=== PATIENT | female | born 1995 ===

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

== ENCOUNTER 2018-10-01 22:23 | Inpatient (IN) ==
[2018-10-01] MEDS ORDERED: SODIUM CHLORIDE 0.9% 1000ML 1,000 ML IV ONE (23:05)
[2018-10-01] MEDS ORDERED: ACETAMINOPHEN 1,000 MG/100 ML VIAL IV STA (23:05)
[2018-10-01] MEDS ORDERED: ONDANSETRON INJ 2 MG/ML 2 ML VIAL IV STA (23:05)
[2018-10-01 23:27] LABS: Basophils # (auto) 0.02 K/uL (0-0.2); Basophils % (auto) 0.2 %; Eosinophils # (auto) 0.03 K/uL (0-0.5); Eosinophils % (auto) 0.3 %; Hematocrit (blood only) 34.2 % (37-47); Immature Granulocytes # (auto) 0.03 K/uL (0.00-0.02); Immature Granulocytes % (auto) 0.3 %; Lymphocytes # (auto) 1.82 K/uL (1.2-3.4); Lymphocytes % (auto) 16.4 %; Mean Corpuscular Hgb Conc 32.2 g/dL (32-36); Mean Corpuscular Volume 78.3 fL (80-100); Monocytes # (auto) 1.75 K/uL (0.11-0.59); Monocytes % (auto) 15.8 %; Neutrophils # (auto) 7.45 K/uL (1.4-6.5); Platelet Count 211 K/uL (130-400); RDW Coefficient of Variation 14.1 % (11.5-14.5); RDW Standard Deviation 40.4 fL (36.4-46.3); Red Blood Count 4.37 M/uL (4.2-5.4)
[2018-10-01 23:35] LABS: Appearance Urine Turbid (Clear); Bacteria Urine Automated 3+ (Negative); Bilirubin Urine Negative (Negative); Blood Urine 2+ (Negative); Color Urine Yellow; Epithelial Cell Urine Auto >30 /lpf (0-5); Glucose Urine UA Negative (Negative); Ketones Urine Negative (Negative); Leukocyte Esterase Urine Trace (Negative); Nitrite Urine Negative (Negative); Protein Urine Negative (Negative); RBC Urine Automated 0-4 /hpf (0-4); Specific Gravity Urine 1.024 (1.000-1.030); Urobilinogen Urine Negative (Negative); pH Urine >= 9.0 (4.5-7.5)
[2018-10-01 23:46] LABS: Albumin Level 3.2 gm/dl (3.4-5.0); BUN Creatinine Ratio 12.5 (10-20); Calcium 8.4 mg/dl (8.5-10.1); Creatinine Clr Calc Pharmacy 79.7 ml/min; Est GFR (African American) 108.1; Est GFR (Non-African American) 93.3; Potassium 3.9 mmol/L (3.5-5.1)
[2018-10-01 23:49] LABS: Albumin Globulin Ratio 0.9 (0.9-2); Bilirubin,Total 0.2 mg/dl (0.2-1); Globulin 3.5 gm/dl (2.5-4.0); Total Protein 6.7 gm/dl (6.4-8.2)
[2018-10-01 23:51] LABS: Cast Urine Automated 0 /lpf (0-5); Mucus Urine Present (None Prsent)
[2018-10-02] MEDS ORDERED: IOVERSOL 100ml IV PRN (00:08)
[2018-10-02] MEDS ORDERED: cefTRIAXone SODIUM 1,000 MG/50 ML BAG IV STA (01:25)
--- NOTE | 2018-10-02 01:36 | Emergency Department Note ---
History of Present Illness General Chief Complaint: Fever Stated Complaint: HEADACHE,FEVER,NAUSEA Source: patient Mode of arrival: ambulatory Limitations: no limitations History of Present Illness Provider Complaint: abdominal pain Onset (ago): 2 day(s) Pain Consistency: constant Location: diffuse and epigastric Migration to: no migration Severity: severe Maximum Pain Intensity: 8 Current Pain Intensity: 8 Quality: + sharp Relieved By: + nothing Exacerbated By: + eating Associated Symptoms: + nausea, + fever and + chills; no vomiting and no diarrhea Treatments prior to arrival: none This 22-year-old female patient presents emergency department today complaining of nausea, lightheadedness, fever, congestion, generalized abdominal pain. Patient denies any rhinorrhea or sore throat. She states the pain is in the mid abdomen and describes it as sharp and constant. She states it began yesterday. The patient has taken no medications for symptoms. She has been able to tolerate water, but has had a significantly decreased appetite. Eating makes his symptoms worse, and there are no alleviating factors. The patient reports constipation, but states her last bowel movement was 4 PM today. She reports a sensation to move her bowels. She denies any recent diarrhea. She denies any history of abdominal surgeries. She does admit to taking 2 plan B pills this week, the first 1 on Tuesday and 1 of them yesterday. The patient rates her pain 8/10 and describes it as sharp. She denies any palpitations, chest pain, difficulty breathing, dizziness, altered mental status, neck pain, flank pain, or dysuria. Related Data Date of Last Menstrual Period: 09/04/18 Home Medications Home Medications Medication Instructions Recorded Confirmed Type No Known Home Medications 10/01/18 10/01/18 History Allergies Allergy/AdvReac Type Severity Reaction Status Date / Time Penicillins Allergy Unknown UNKNOWN Verified 10/01/18 22:41 Past Med/Surg History Medical History No pertinent past medical history Social History Feels Safe at Home: Yes Smoking Status: Never smoker Review of Systems A total of 10 systems reviewed and were otherwise negative Physical Exam Vital Signs: Vital Signs - 24 hr 10/01/18 22:27 10/02/18 00:10 10/02/18 00:56 Temperature 38.6 C H 37.1 C Temperature Source Oral Oral Sepsis Recent Feve r Within 48 Hours Yes Sepsis Action Take n by Nursing No Action Required Pulse Rate 113 H Pulse Rate [Apical ] 95 H 87 Respiratory Rate 18 18 18 Respiratory Effort / Characteristics Non-Labored Sponta neous Respiratory Depth Normal Normal Respiratory Patter n Regular Blood Pressure 122/85 Blood Pressure [Le ft Arm] 126/80 96/61 L Blood Pressure Tiff n 97 Blood Pressure Tiff n [Left Arm] 95 72 Blood Pressure Pos ition Sitting Pulse Oximetry 99 100 99 Oxygen Delivery Me thod Room Air Room Air Room Air Physical Exam: VITALS: Vitals are noted on the nurse's note and reviewed by myself. Vital signs stable. GENERAL: This is a 22-year-old female, in no acute distress, nondiaphoretic, well-developed well-nourished. SKIN: The skin was without rashes, erythema, edema, or bruising. There is no tenting of the skin. Capillary reflex less than 2 seconds. HEAD: Normocephalic atraumatic. EARS: External auditory canals clear, tympanic membranes pearly alegria without erythema or effusion bilaterally. EYES: Pupils equal round and reactive to light and accommodation. Conjunctivae without injection, sclerae without icterus. Extraocular movements intact. NOSE: Patent, turbinates without inflammation or discharge. No sinus tenderness. MOUTH: Mucous membranes moist. Tonsils are not enlarged. Pharynx without erythema or exudate. Uvula midline. Airway patent. Tongue does not deviate. NECK: Supple without nuchal rigidity. No lymphadenopathy. No thyromegaly. Cervical spine is nontender. No JVD. HEART: Regular rate and rhythm without murmurs gallops or rubs. LUNGS: Clear to auscultation bilaterally without wheezes, rales or rhonchi. No dullness to percussion. No retractions or accessory muscle use. ABDOMEN: Positive bowel sounds x 4. Normal tympanic percussion. Generalized abdominal tenderness. The abdomen was mildly distended. No masses or organomegaly. Lundberg sign negative. No guarding or rebound tenderness. MUSCULOSKELETAL: No muscle atrophy, erythema, or edema noted. Full range of motion without joint tenderness in all extremities. No tenderness to palpation. Normal gait. Strength 5/5 throughout. NEURO: Patient was alert and oriented to person place and time. Normal sensation to light and sharp touch. Deep tendon reflexes 2+ throughout. No focal neurological deficits. Course The patient was seen and evaluated as above. IV access obtained, labs drawn. The patient was medicated with IV fluids, Zofran, and acetaminophen. Imaging performed and reviewed by myself and radiologist as above. Labs reviewed by myself. I discussed the case with my attending. I discussed the findings with the patient at bedside. I discussed the case with her mother on the phone. I did recommend admission at this time. I consulted with Dr. Delgado, [facility] hospitalist. She did agreed to assess the patient for admission. Please see her dictation regarding ongoing management care of this patient. The patient was given IV Rocephin due to questionable UTI and fever. Administered Medications Ioversol (Optiray 320 100ml) 100 ml IV ONCE PRN PRN Reason: Interaction Checking Stop: 10/06/18 00:07 Last Admin: 10/02/18 00:09 Dose: 93 ml Documented by: [id number] Discontinued Medications Acetaminophen (Ofirmev) 1,000 mg in 100 mls @ 400 mls/hr IV NOW STA Stop: 10/01/18 23:19 Last Infusion: 10/01/18 23:53 Dose: 0 mls/hr Documented by: [id number] Admin: 10/01/18 23:38 Dose: 400 mls/hr Documented by: [id number] Sodium Chloride (Nss 1000ml) 1,000 mls @ 999 mls/hr IV .Q1H1M ONE Stop: 10/02/18 00:05 Last Infusion: 10/02/18 00:56 Dose: 0 mls/hr Documented by: [id number] Admin: 10/01/18 23:39 Dose: 999 mls/hr Documented by: [id number] Ceftriaxone Sodium (Rocephin) 1,000 mg in 50 mls @ 100 mls/hr IV NOW STA Stop: 10/02/18 01:54 Last Infusion: 10/02/18 02:02 Dose: 0 mls/hr Documented by: [id number] Admin: 10/02/18 01:30 Dose: 100 mls/hr Documented by: [id number] Ondansetron HCl (Zofran) 4 mg IV NOW STA Stop: 10/01/18 23:06 Last Admin: 10/01/18 23:38 Dose: 4 mg Documented by: [id number] Medical Decision Making Differential Diagnosis + peptic ulcer disease, + biliary pathology, + UTI, + obstruction, + mesenteric ischemia, + aortic pathology, + infections, + inflammatory bowel disease, + renal colic, + ectopic (female), + ovarian torsion (female), + tubo- ovarian abscesses (female), + pelvic inflammatory disease (female), + abdominal pain, + appendicitis, + calculus of kidney, + constipation, + diverticulitis, + endometriosis, + gastroenteritis, + pancreatitis and + small bowel obstruction Home Medications Current Medication List: was personally reviewed by or Laboratory Data Attestation: I reviewed the patient's lab results. Mild leukocytosis of 11,000. Mild anemia with hemoglobin 11. No significant renal, hepatic, electrolyte abnormalities. Lipase mildly elevated at 518. Monoscreen negative. Lactic 1.5. Urine test negative. Urinalysis positive for 3+ bacteria and 2+ blood. This does appear to be contaminated with epithelial cells. Negative influenza testing. Result diagrams: 10/01/18 23:14 10/01/18 23:14 Lab Results 10/01/18 10/01/18 10/01/18 Range/Units 23:14 23:14 23:14 WBC 11.10 H (4.8-10.8) K/uL RBC 4.37 (4.2-5.4) M/uL Hgb 11.0 L (12.0-16.0) g/dL Hct 34.2 L (37-47) % MCV 78.3 L (80-100) fL MCH 25.2 (25-34) pg MCHC 32.2 (32-36) g/dL RDW Std Deviation 40.4 (36.4-46.3) fL RDW Coeff of Diego 14.1 (11.5-14.5) % Plt Count 211 (130-400) K/uL MPV 9.0 (7.4-10.4) fL Immature Gran % (Auto) 0.3 % Neut % (Auto) 67.0 % Lymph % (Auto) 16.4 % [place] % (Auto) 15.8 % Eos % (Auto) 0.3 % Baso % (Auto) 0.2 % Immature Gran # (Auto) 0.03 H (0.00-0.02) K/uL Neut # (Auto) 7.45 H (1.4-6.5) K/uL Lymph # (Auto) 1.82 (1.2-3.4) K/uL [place] # (Auto) 1.75 H (0.11-0.59) K/uL Eos # (Auto) 0.03 (0-0.5) K/uL Baso # (Auto) 0.02 (0-0.2) K/uL Sodium 141 (136-145) mmol/L Potassium 3.9 (3.5-5.1) mmol/L Chloride 111 H (98-107) mmol/L Carbon Dioxide 25 (21-32) mmol/L Anion Gap 5.0 (3-11) BUN 11 (7-18) mg/dl Creatinine 0.89 (0.6-1.2) mg/dl Est Cr Clr Drug Dosing 79.7 ml/min Est GFR ( Amer) 108.1 Est GFR (Non-Af Amer) 93.3 BUN/Creatinine Ratio 12.5 (10-20) Glucose 95 (70-99) mg/dl Lactate (0.4-2.0) mmol/L Calcium 8.4 L (8.5-10.1) mg/dl Total Bilirubin 0.2 (0.2-1) mg/dl AST 16 (15-37) U/L ALT 16 (12-78) U/L Alkaline Phosphatase 55 (45-117) U/L Total Protein 6.7 (6.4-8.2) gm/dl Albumin 3.2 L (3.4-5.0) gm/dl Globulin 3.5 (2.5-4.0) gm/dl Albumin/Globulin Ratio 0.9 (0.9-2) Lipase 518 H (73-393) U/L Urine Color Urine Appearance (Clear) Urine pH (4.5-7.5) Ur Specific [place] (1.000-1.030) Urine Protein (Negative) Urine Glucose (UA) (Negative) Urine Ketones (Negative) Urine Blood (Negative) Urine Nitrite (Negative) Urine Bilirubin (Negative) Urine Urobilinogen (Negative) Ur Leukocyte Esterase (Negative) Urine WBC (Auto) (0-5) /hpf Urine RBC (Auto) (0-4) /hpf U Hyaline Cast (Auto) (0-5) /lpf U Epithel Cells (Auto) (0-5) /lpf Urine Bacteria (Auto) (Negative) Urine Mucus (None Prsent) Urine Yeast POC Ur Test (NEG) Monoscreen Negative (Negative) Influenza Type A Ag (Neg) Influenza Type B Ag (Neg) 10/01/18 10/01/18 10/01/18 Range/Units 23:20 23:20 23:25 WBC (4.8-10.8) K/uL RBC (4.2-5.4) M/uL Hgb (12.0-16.0) g/dL Hct (37-47) % MCV (80-100) fL MCH (25-34) pg MCHC (32-36) g/dL RDW Std Deviation (36.4-46.3) fL RDW Coeff of Diego (11.5-14.5) % Plt Count (130-400) K/uL MPV (7.4-10.4) fL Immature Gran % (Auto) % Neut % (Auto) % Lymph % (Auto) % [place] % (Auto) % Eos % (Auto) % Baso % (Auto) % Immature Gran # (Auto) (0.00-0.02) K/uL Neut # (Auto) (1.4-6.5) K/uL Lymph # (Auto) (1.2-3.4) K/uL [place] # (Auto) (0.11-0.59) K/uL Eos # (Auto) (0-0.5) K/uL Baso # (Auto) (0-0.2) K/uL Sodium (136-145) mmol/L Potassium (3.5-5.1) mmol/L Chloride (98-107) mmol/L Carbon Dioxide (21-32) mmol/L Anion Gap (3-11) BUN (7-18) mg/dl Creatinine (0.6-1.2) mg/dl Est Cr Clr Drug Dosing ml/min Est GFR ( Amer) Est GFR (Non-Af Amer) BUN/Creatinine Ratio (10-20) Glucose (70-99) mg/dl Lactate 1.5 (0.4-2.0) mmol/L Calcium (8.5-10.1) mg/dl Total Bilirubin (0.2-1) mg/dl AST (15-37) U/L ALT (12-78) U/L Alkaline Phosphatase (45-117) U/L Total Protein (6.4-8.2) gm/dl Albumin (3.4-5.0) gm/dl Globulin (2.5-4.0) gm/dl Albumin/Globulin Ratio (0.9-2) Lipase (73-393) U/L Urine Color Yellow Urine Appearance Turbid H (Clear) Urine pH >= 9.0 H (4.5-7.5) Ur Specific [place] 1.024 (1.000-1.030) Urine Protein Negative (Negative) Urine Glucose (UA) Negative (Negative) Urine Ketones Negative (Negative) Urine Blood 2+ H (Negative) Urine Nitrite Negative (Negative) Urine Bilirubin Negative (Negative) Urine Urobilinogen Negative (Negative) Ur Leukocyte Esterase Trace H (Negative) Urine WBC (Auto) 10-30 H (0-5) /hpf Urine RBC (Auto) 0-4 (0-4) /hpf U Hyaline Cast (Auto) 0 (0-5) /lpf U Epithel Cells (Auto) >30 H (0-5) /lpf Urine Bacteria (Auto) 3+ H (Negative) Urine Mucus Present H (None Prsent) Urine Yeast Not Reportable POC Ur Test NEG (NEG) Monoscreen (Negative) Influenza Type A Ag (Neg) Influenza Type B Ag (Neg) 10/01/18 Range/Units 23:43 WBC (4.8-10.8) K/uL RBC (4.2-5.4) M/uL Hgb (12.0-16.0) g/dL Hct (37-47) % MCV (80-100) fL MCH (25-34) pg MCHC (32-36) g/dL RDW Std Deviation (36.4-46.3) fL RDW Coeff of Diego (11.5-14.5) % Plt Count (130-400) K/uL MPV (7.4-10.4) fL Immature Gran % (Auto) % Neut % (Auto) % Lymph % (Auto) % [place] % (Auto) % Eos % (Auto) % Baso % (Auto) % Immature Gran # (Auto) (0.00-0.02) K/uL Neut # (Auto) (1.4-6.5) K/uL Lymph # (Auto) (1.2-3.4) K/uL [place] # (Auto) (0.11-0.59) K/uL Eos # (Auto) (0-0.5) K/uL Baso # (Auto) (0-0.2) K/uL Sodium (136-145) mmol/L Potassium (3.5-5.1) mmol/L Chloride (98-107) mmol/L Carbon Dioxide (21-32) mmol/L Anion Gap (3-11) BUN (7-18) mg/dl Creatinine (0.6-1.2) mg/dl Est Cr Clr Drug Dosing ml/min Est GFR ( Amer) Est GFR (Non-Af Amer) BUN/Creatinine Ratio (10-20) Glucose (70-99) mg/dl Lactate (0.4-2.0) mmol/L Calcium (8.5-10.1) mg/dl Total Bilirubin (0.2-1) mg/dl AST (15-37) U/L ALT (12-78) U/L Alkaline Phosphatase (45-117) U/L Total Protein (6.4-8.2) gm/dl Albumin (3.4-5.0) gm/dl Globulin (2.5-4.0) gm/dl Albumin/Globulin Ratio (0.9-2) Lipase (73-393) U/L Urine Color Urine Appearance (Clear) Urine pH (4.5-7.5) Ur Specific [place] (1.000-1.030) Urine Protein (Negative) Urine Glucose (UA) (Negative) Urine Ketones (Negative) Urine Blood (Negative) Urine Nitrite (Negative) Urine Bilirubin (Negative) Urine Urobilinogen (Negative) Ur Leukocyte Esterase (Negative) Urine WBC (Auto) (0-5) /hpf Urine RBC (Auto) (0-4) /hpf U Hyaline Cast (Auto) (0-5) /lpf U Epithel Cells (Auto) (0-5) /lpf Urine Bacteria (Auto) (Negative) Urine Mucus (None Prsent) Urine Yeast POC Ur Test (NEG) Monoscreen (Negative) Influenza Type A Ag Neg for Influ A (Neg) Influenza Type B Ag Neg for Influ B (Neg) Imaging Data Radiologist's Impression: Chest x-ray. reviewed by myself. Findings: A chest x-ray was performed and revealed no pneumothorax, effusion, infiltrate, pulmonary edema, free air under the diaphragm, or wide mediastinum. CT ABDOMEN & PELVIS With Contrast: No prior No evidence for pneumonia at the lung bases. Fluid in the esophagus which may represent reflux. Gastric distention. While nonspecific, prominent with mottled intraluminal appearance. Correlate for gastric outlet obstruction. Gastric bezoar within the differential. Consider NG tube placement or other follow-up, as indicated. Limited by paucity of mesenteric fat and volume averaging. Where visualized, appendix appears unremarkable. Small amount of free fluid in the pelvis. Gallbladder is contracted and not well evaluated. No evidence for acute pancreatitis or other significant abnormality of the solid viscera. Radiologist: Chevy Redd M.D. Blood Pressure Blood Pressure Findings: Normal blood pressure MDM Narrative This 22-year-old female patient presents emergency department today complaining of fever and generalized abdominal discomfort. The patient's symptoms began 2 days ago and associated with nausea, but no vomiting. Workup here in the ED does show very mild leukocytosis. The patient does have bacteria in her urine. CT scan was concerning for gastric distention, possibly a gastric outlet obst ruction. Because of this finding, I did recommend admission with GI consult tomorrow. The hospitalist was agreeable. I did speak with the patient as well as her mother, and they verbalized agreement understanding of this plan. The patient was initially hesitant for admission, and when asked why, she states "because I will feel more comfortable in my own bed. Discussed the risks associated with her going home and not having the GI consult and further workup and the patient verbalized understanding and agrees to admission. Please see hospitalist dictation regarding ongoing management care of this patient. The chart was completed utilizing [employer] Speech voice recognition software. Grammatical errors, random word insertions, pronoun errors, and incomplete sentences are an occasional consequence of this system due to software limitations, ambient noise, and hardware issues. Any formal questions or concerns about the content, text, or information contained within the body of this dictation should be directly addressed to the provider for clarification. Impression & Plan Fever, Gastric outlet obstruction Discharge Plan Visit Data Chief Complaint: Fever Stated Complaint: HEADACHE,FEVER,NAUSEA ED Provider: Bryn Phan ED Midlevel Provider: Debbie Voss Discharge Problem: Fever, Gastric outlet obstruction Forms Stand Alone Forms: [employer] [employer] Prescriptions Prescriptions: No Action No Known Home Medications RF: 0 Referrals Referrals: [facility] [Primary Care Provider] - Discharge Problem: Fever Qualifiers: Fever type: unspecified Qualified Code(s): R50.9 - Fever, unspecified
--- NOTE | 2018-10-02 02:37 | History & Physical Report ---
Date of Service October 02, 2018 Assessment & Plan (1) Abdominal pain: 22-year-old female with no significant past medical history presenting with abdominal pain and abnormal CT findingssigns of gastric outlet obstruction. Abdominal pain/nausea/fever Physical exam is not suspicious for bowel obstruction. Pt has mildly elevated lipase Differential includes; viral gastroenteritis, pancreatitis, peptic ulcer disease, bezor Patient will be n.p.o., continue fluids normal saline 125 cc/h, Pepcid, Tylenol for pain control Ordering barium swallow for better visualization of gastric anatomy UTI Received 1 dose of Rocephin in the ED DVT prophylaxis SCD/ambulate Code Full (2) Fever: (3) Gastric outlet obstruction: (4) Elevated lipase: History of Present Illness Primary Care Provider: [facility] 22-year-old female with no significant past medical history presents with abdominal pain and nausea for 1 day. She describes the abdominal pain as a sharp constant pain, 7 out of 10 with abdominal bloating. She has had decrease in appetite and has only been able to tolerate Ramen noodles and soup. She says that nothing makes it better or worse. She denies any vomiting or diarrhea at this time. She denies any sick contacts. She has had fevers throughout the d ay. She denies any recent travel, exposure to pets or fresh water. The patient reports multiple unprotected sexual encountersshe reports using plan B twice this past week. Allergies Allergy/AdvReac Type Severity Reaction Status Date / Time Penicillins Allergy Unknown UNKNOWN Verified 10/01/18 22:41 Home Medications Home Medications Medication Instructions Recorded Confirmed Type No Known Home Medications 10/01/18 10/01/18 History Past Med/Surg History Medical History No pertinent past medical history Social History Preferred Language: [place] Communication Ability: Effective Ice Rink Attendant Required: No Beliefs That Will Affect Care: None Current Living Situation: Other Current Living Situation Comment: Four roommates in an off-campus apartment Feels Safe at Home: Yes Safety Concerns: Feels Safe At This Time Smoking Status: Never smoker Hx Alcohol Use: Yes Hx Substance Use: No Review of Systems All systems reviewed & are unremarkable except as noted in HPI & below Physical Exam Vital Signs (Past 24 Hours): Last Vital Signs Temp 37.1 C 10/02/18 00:56 Pulse 87 10/02/18 00:56 Resp 18 10/02/18 00:56 BP 96/61 L 10/02/18 00:56 Pulse Ox 99 10/02/18 00:56 Constitutional: WD/WN, vitals as above Eyes: PERRL, conjunctivae normal, anicteric sclerae ENMT: external ear and nose normal, oropharynx normal Neck: trachea midline, no thyromegaly Respiratory: normal respiratory effort, lungs clear to auscultation Cardiovascular: RRR, no murmur, no edema Gastrointestinal (Abdomen): normal bowel sounds, soft, nontender, no hepatosplenomegaly Musculoskeletal: no cyanosis or clubbing, extremities motor strength 5/5 Skin: no rashes, warm and dry Psychiatric: A+Ox3, euthymic affect Results & Data Laboratory Results Laboratory Last Values WBC 11.10 K/uL (4.8-10.8) H 10/01/18 23:14 RBC 4.37 M/uL (4.2-5.4) 10/01/18 23:14 Hgb 11.0 g/dL (12.0-16.0) L 10/01/18 23:14 Hct 34.2 % (37-47) L 10/01/18 23:14 MCV 78.3 fL (80-100) L 10/01/18 23:14 MCH 25.2 pg (25-34) 10/01/18 23:14 MCHC 32.2 g/dL (32-36) 10/01/18 23:14 RDW Std Deviation 40.4 fL (36.4-46.3) 10/01/18 23:14 RDW Coeff of [place] 14.1 % (11.5-14.5) 10/01/18 23:14 Plt Count 211 K/uL (130-400) 10/01/18 23:14 MPV 9.0 fL (7.4-10.4) 10/01/18 23:14 Immature Gran % (Auto) 0.3 % 10/01/18 23:14 Neut % (Auto) 67.0 % 10/01/18 23:14 Lymph % (Auto) 16.4 % 10/01/18 23:14 [place] % (Auto) 15.8 % 10/01/18 23:14 Eos % (Auto) 0.3 % 10/01/18 23:14 Baso % (Auto) 0.2 % 10/01/18 23:14 Immature Gran # (Auto) 0.03 K/uL (0.00-0.02) H 10/01/18 23:14 Neut # (Auto) 7.45 K/uL (1.4-6.5) H 10/01/18 23:14 Lymph # (Auto) 1.82 K/uL (1.2-3.4) 10/01/18 23:14 [place] # (Auto) 1.75 K/uL (0.11-0.59) H 10/01/18 23:14 Eos # (Auto) 0.03 K/uL (0-0.5) 10/01/18 23:14 Baso # (Auto) 0.02 K/uL (0-0.2) 10/01/18 23:14 Sodium 141 mmol/L (136-145) 10/01/18 23:14 Potassium 3.9 mmol/L (3.5-5.1) 10/01/18 23:14 Chloride 111 mmol/L (98-107) H 10/01/18 23:14 Carbon Dioxide 25 mmol/L (21-32) 10/01/18 23:14 Anion Gap 5.0 (3-11) 10/01/18 23:14 BUN 11 mg/dl (7-18) 10/01/18 23:14 Creatinine 0.89 mg/dl (0.6-1.2) 10/01/18 23:14 Est Cr Clr Drug Dosing 79.7 ml/min 10/01/18 23:14 Est GFR ( Amer) 108.1 10/01/18 23:14 Est GFR (Non-Af Amer) 93.3 10/01/18 23:14 BUN/Creatinine Ratio 12.5 (10-20) 10/01/18 23:14 Glucose 95 mg/dl (70-99) 10/01/18 23:14 Lactate 1.5 mmol/L (0.4-2.0) 10/01/18 23:25 Calcium 8.4 mg/dl (8.5-10.1) L 10/01/18 23:14 Total Bilirubin 0.2 mg/dl (0.2-1) 10/01/18 23:14 AST 16 U/L (15-37) 10/01/18 23:14 ALT 16 U/L (12-78) 10/01/18 23:14 Alkaline Phosphatase 55 U/L (45-117) 10/01/18 23:14 Total Protein 6.7 gm/dl (6.4-8.2) 10/01/18 23:14 Albumin 3.2 gm/dl (3.4-5.0) L 10/01/18 23:14 Globulin 3.5 gm/dl (2.5-4.0) 10/01/18 23:14 Albumin/Globulin Ratio 0.9 (0.9-2) 10/01/18 23:14 Lipase 518 U/L (73-393) H 10/01/18 23:14 Urine Color Yellow 10/01/18 23:20 Urine Appearance Turbid (Clear) H 10/01/18 23:20 Urine pH >= 9.0 (4.5-7.5) H 10/01/18 23:20 Ur Specific [place] 1.024 (1.000-1.030) 10/01/18 23:20 Urine Protein Negative (Negative) 10/01/18 23:20 Urine Glucose (UA) Negative (Negative) 10/01/18 23:20 Urine Ketones Negative (Negative) 10/01/18 23:20 Urine Blood 2+ (Negative) H 10/01/18 23:20 Urine Nitrite Negative (Negative) 10/01/18 23:20 Urine Bilirubin Negative (Negative) 10/01/18 23:20 Urine Urobilinogen Negative (Negative) 10/01/18 23:20 Ur Leukocyte Esterase Trace (Negative) H 10/01/18 23:20 Urine WBC (Auto) 10-30 /hpf (0-5) H 10/01/18 23:20 Urine RBC (Auto) 0-4 /hpf (0-4) 10/01/18 23:20 U Hyaline Cast (Auto) 0 /lpf (0-5) 10/01/18 23:20 U Epithel Cells (Auto) >30 /lpf (0-5) H 10/01/18 23:20 Urine Bacteria (Auto) 3+ (Negative) H 10/01/18 23:20 Urine Mucus Present (None Prsent) H 10/01/18 23:20 Urine Yeast Not Reportable 10/01/18 23:20 POC Ur Test NEG (NEG) 10/01/18 23:20 Monoscreen Negative (Negative) 10/01/18 23:14 Influenza Type A Ag Neg for Influ A (Neg) 10/01/18 23:43 Influenza Type B Ag Neg for Influ B (Neg) 10/01/18 23:43 Code Status & VTE Plan Code Status Full VTE Prophylaxis Plan VTE Prophylaxis will be ordered: Yes Supervising Physician Co-Signing Physician Notes Patient seen and examined, chart reviewed, case discussed with Dr. Ortez and I agree with his assessment and plan as above. 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 CT with gastric distention, possible gastric-outlet obstruction vs bezoar On exam she is afebrile, HD stable, NAD Abd: soft, mildly tender in mid abdomen, no rebound/guarding/peritoneal signs, nondistended Labs and images reviewed. 22yo female with abdominal pain/nausea/fever, CT with possible gastric distention/outlet obstruciton/?bezoar -Admit to medical floor -Check barium swallow -GI evaluation -Remainder of plan as above Resident Activity Tracking Resident Involvement: Resident Care Provided Care Provided: Adult Hospital Medicine (1) Fever Fever type: unspecified Qualified Code(s): R50.9 - Fever, unspecified
[2018-10-02] MEDS ORDERED: SODIUM CHLORIDE 0.9% 1000ML 1,000 ML IV SCH (02:45)
[2018-10-02] MEDS ORDERED: ACETAMINOPHEN 325 MG TAB PO PRN (03:47)
[2018-10-02 05:50] LABS: Basophils # (auto) 0.03 K/uL (0-0.2); Basophils % (auto) 0.3 %; Eosinophils # (auto) 0.12 K/uL (0-0.5); Eosinophils % (auto) 1.1 %; Hematocrit (blood only) 33.5 % (37-47); Hemoglobin 10.8 g/dL (12.0-16.0); Immature Granulocytes # (auto) 0.03 K/uL (0.00-0.02); Immature Granulocytes % (auto) 0.3 %; Lymphocytes # (auto) 3.18 K/uL (1.2-3.4); Lymphocytes % (auto) 29.5 %; Mean Corpuscular Hgb Conc 32.2 g/dL (32-36); Mean Platelet Volume 9.4 fL (7.4-10.4); Monocytes # (auto) 1.64 K/uL (0.11-0.59); Monocytes % (auto) 15.2 %; Neutrophils # (auto) 5.78 K/uL (1.4-6.5); Neutrophils % (auto) 53.6 %; Platelet Count 200 K/uL (130-400); RDW Coefficient of Variation 14.4 % (11.5-14.5); RDW Standard Deviation 41.5 fL (36.4-46.3); Red Blood Count 4.19 M/uL (4.2-5.4); White Blood Count 10.78 K/uL (4.8-10.8)
[2018-10-02 06:11] LABS: Albumin Level 2.7 gm/dl (3.4-5.0); BUN Creatinine Ratio 12.3 (10-20); Calcium 8.3 mg/dl (8.5-10.1); Creatinine Clr Calc Pharmacy 92.2 ml/min; Est GFR (African American) 128.8; Est GFR (Non-African American) 111.1
[2018-10-02 06:14] LABS: Albumin Globulin Ratio 0.9 (0.9-2); Bilirubin,Total 0.2 mg/dl (0.2-1); Globulin 3.1 gm/dl (2.5-4.0); Total Protein 5.8 gm/dl (6.4-8.2)
--- NOTE | 2018-10-02 07:14 | CT Scan Report ---
CT SCAN OF THE ABDOMEN AND PELVIS WITH IV CONTRAST CLINICAL HISTORY: Generalized abdominal pain. COMPARISON STUDY: No priors. TECHNIQUE: Following the IV administration of 93 cc of Optiray 320, CT scan of the abdomen and pelvi s is performed from the lung bases to the proximal femora. Images are reviewed in the axial, sagittal , and coronal planes. IV contrast was administered without complication. A dose lowering technique wa s utilized adhering to the principles of ALARA. CT DOSE: 278.16 mGy.cm FINDINGS: Lung bases: The heart is normal in size and without pericardial effusion. The lung bases are clear. Liver: The contrast-enhanced liver is normal in size, contour, and attenuation. There is no intrahepa tic biliary ductal dilatation. The hepatic veins and portal veins are patent. Gallbladder: Contracted. Spleen: Normal in size and attenuation. Pancreas: Unremarkable. Adrenal glands: Unremarkable. Kidneys: The contrast enhanced kidneys are normal in size and without hydronephrosis. An extrarenal p ebony is noted on the right. The kidneys enhance symmetrically. Abdominal vasculature: The abdominal aorta is normal in course and caliber. Stomach and bowel: A small hiatal hernia is noted. There is fluid in the distal esophagus. The stomac h is markedly distended and filled with ingested material. Question a duodenal lipoma on image #128. Fecal retention is noted in the right colon. No small bowel obstruction is identified. The appendix i s normal as visualized. Peritoneum: There is no intraperitoneal free air or abdominal ascites. Lymphadenopathy: None. Pelvic viscera: The bladder, uterus, and adnexa are normal as visualized. Trace free fluid is seen in the cul-de-sac. Skeletal structures: No lytic or blastic lesions are seen. IMPRESSION: 1. The stomach is markedly distended and filled with ingested material. This may represent gastric ou tlet obstruction. No clear cause of obstruction is identified. Bezoar would be impossible to exclude. 2. There is no small bowel obstruction. 3. Trace free fluid in the cul-de-sac is nonspecific and likely within physiologic limits. Electronically signed by: Palmer Ventura M.D. 10/02/2018 7:12 AM
--- NOTE | 2018-10-02 07:14 | XRay Report ---
SINGLE VIEW CHEST CLINICAL HISTORY: Cough and fever. FINDINGS: An AP, portable, upright chest radiograph is obtained. No prior studies are available for c omparison at the time of dictation. The examination is degraded by portable technique and patient rot ation. The cardiomediastinal silhouette is unremarkable. The lungs and pleural spaces are clear. No pneumothorax is seen. The bony thorax is grossly intact. IMPRESSION: No active disease in the chest. Electronically signed by: Palmer Ventura M.D. 10/02/2018 7:13 AM
[2018-10-02] MEDS ORDERED: FAMOTIDINE 20 MG in SYRINGE 3 ML IV SCH (09:00)
--- NOTE | 2018-10-02 15:28 | History & Physical Bridge Note ---
Date of Service October 02, 2018 History & Physical Bridge Note Patient seen and examined today. Feeling better with improved nausea and minimal abdominal pain. CT a/p is equivocal. Will advance diet, treat UTI, and follow clinically.
[2018-10-03] MEDS ORDERED: cefTRIAXone SODIUM 1,000 MG in DEXTROSE 5% 50 ML IV SCH (01:00)
[2018-10-03 06:36] LABS: BUN Creatinine Ratio 9.3 (10-20); Calcium 8.5 mg/dl (8.5-10.1); Creatinine Clr Calc Pharmacy 112.7 ml/min; Est GFR (African American) 149.7; Est GFR (Non-African American) 129.1; Potassium 4.5 mmol/L (3.5-5.1)
[2018-10-03 11:14] LABS: Epstein Barr Virus Early Ag Ab < 9.00 U/ML
[2018-10-03] MEDS ORDERED: DOCUSATE SODIUM 100 MG CAP PO STA (11:27)
--- NOTE | 2018-10-03 18:28 | Discharge Summary ---
Date of Service October 03, 2018 Admission HPI Per Admitting Provider 22-year-old female with no significant past medical history presents with abdominal pain and nausea for 1 day. She describes the abdominal pain as a sharp constant pain, 7 out of 10 with abdominal bloating. She has had decrease in appetite and has only been able to tolerate Ramen noodles and soup. She says that nothing makes it better or worse. She denies any vomiting or diarrhea at this time. She denies any sick contacts. She has had fevers throughout the day. She denies any recent travel, exposure to pets or fresh water. The patient reports multiple unprotected sexual encountersshe reports using plan B twice this past week. Principal Diagnosis Viral gastroenteritis Discharge Exam Constitutional WD/WN, vitals as above Eyes PERRL, conjunctivae normal, anicteric sclerae ENMT external ear and nose normal, oropharynx normal Neck trachea midline, no thyromegaly Respiratory normal respiratory effort, lungs clear to auscultation Cardiovascular RRR, no murmur, no edema Gastrointestinal (Abdomen) normal bowel sounds, soft, nontender, no hepatosplenomegaly Musculoskeletal no cyanosis or clubbing, extremities motor strength 5/5 Skin no rashes, warm and dry Psychiatric A+Ox3, euthymic affect Discharge Data Allergies Allergy/AdvReac Type Severity Reaction Status Date / Time Penicillins Allergy Unknown UNKNOWN Verified 10/01/18 22:41 Consultations 10/02/18 01:26 ED Decision to Admit Stat 10/02/18 03:47 Consult Case Management - Discharge Planning Routine Ordered Studies 10/01/18 23:05 CT abd pelvis IV con only Urgent Hospital Course (1) Abdominal pain: 22-year-old female with no significant past medical history presenting with abdominal pain and abnormal CT findingssigns of gastric outlet obstruction. Abdominal pain/nausea/fever Physical exam was not suspicious for bowel obstruction. Pt had mildly elevated lipase - returned to normal by discharge. Likely viral gastroenteritis vs mild pancreatitis UTI Received 2 doses of Rocephin; switched to Ciprofloxacin on discharge x 1 more day. (2) Fever: (3) Gastric outlet obstruction: (4) Elevated lipase: Total Time Total Time Spent Total Time Spent (In Minutes): 35 Total Time Includes: Examination of the Patient, Discharge Planning and Medication Reconciliation Discharge Plan Discharge Items Patient Disposition: Home - Self-Care Reason For Visit: ABDOMINAL PAIN, FEVER Discharge Diagnosis: Viral gastroenteritis Discharge Goals: Decrease discomfort and Improve disease control Activity: Resume your previous activity Non-emergency contact: Primary Care Provider Call non-emergency contact if: your symptoms worsen, your pain is not controlled and your temperature is above 100.5 Follow-up/Referrals: [facility] [Primary Care Provider] - Diet: Regular Addtl Provider Instructions: Ms. Louis, Nba were admitted with stomach pain, nausea, and a fever. We believe this was due to a viral gastroenteritis (viral stomach bug). It is possible a bladder infection (UTI) also caused or worsened some of your nausea. Over the course of 24 hours, you started to feel better, and we think you are ready to be discharged. Over the next few days, please slowly advance your diet back to normal foods. Start with softer, gentler foods on the stomach such as soups and low fat foods. Take Colace (docusate) and/or senna to help with your constipation. Please finish the last day of antibiotic tomorrow for your UTI. You will need to take the first pill tonight, then 2 times tomorrow. Please follow up with the [facility] in a week or two to be sure you're feeling back to normal. Prescriptions: New ciprofloxacin HCl [Cipro] 500 mg tablet 500 mg PO BID Qty: 3 RF: 0 Stand-Alone Forms: [facility], Work/School Release (Inpt) Discharge Orders: Discharge Order (Routine); Ordered 10/03/18 Ordered By: Rogelio Bey Admission Data Admit Date/Time: 10/02/18 02:25 Attending Provider: Rogelio Bey Admit Provider: Mehdi Ortez Primary Care Provider: [facility] Other Providers: Rogelio Bey Service: Medical Other Interventions: Discharge Summary Assessment (RN) Last Done: 10/03/18 11:18 DC Date/Time DO NOT enter until pt leaves facility: 10/03/18 12:05
[2018-10-04] MEDS ORDERED: SULFAMETHOXAZOLE/TRIMETHOPRIM DS 800/160MG TAB PO SCH (09:00)
== END 2018-10-03 12:05 | disposition home or self-care (01) | DRG 392 ==
LOC: ED 22:23 → 3E 10-02 02:25 → SUATTDRO 10-02 02:25 → 3E 10-02 03:31